=== PATIENT | female | born 1945 | race African-American/Black ===

== ENCOUNTER 2017-01-29 21:42 | Emergency (ER) | payer OTHER ==
[~2017-01-29 21:42] MED LIST: DUONEB3 ML NEB; LAC PO; LEV500 PO; LEVAQUIN750 MG PO; LOSARTAN POTASS1 TA6 PO; LOW DOSE ASPIRI81 M1 PO; LOW DOSE ASPIRI81 MG; MAGNESIUM OXID400 MG PO; MEDDP PO; NOR10T PO; NPHOS PO; PLA75 PO; PREVACID PO; PREVACID SOLUTA15 MG; SEREVENT D0.046 MG/1 IH; SEREVENT D0.046 MG/A IH; TOPROL; TOPROL-XL200 MG PO; [UNRECOGNIZED DRUG - CODE]
[2017-01-29 22:36] LABS: CALCIUM 9.7 mg/dL (8.5-10.1); CARBON DIOXIDE 28.5 mmol/L (21-32); CHLORIDE SERUM 101 mmol/L (98-107); CREATININE SERUM 1.3 mg/dL (0.6-1.0); GLUCOSE SERUM 105 mg/dL (74-106); POTASSIUM SERUM 3.3 mmol/L (3.5-5.1); SODIUM SERUM 140 mmol/L (136-145)
[2017-01-29 22:41] LABS: ALBUMIN 4.2 g/dL (3.4-5.0); ALKALINE PHOSPHATASE 58 U/L (46-116); ALT/SGPT 13 U/L (14-59); AMYLASE 63 U/L (25-115); AST/SGOT 16 U/L (15-37); BILIRUBIN TOTAL 1.4 mg/dL (0.20-1.00); LIPASE 146 IU/L (73-393)
[2017-01-29 22:45] LABS: BASOPHIL % 0.4 % (0-2); PLATELET COUNT 313 x10^3mcL (130-400)
[2017-01-29 22:49] LABS: RED CELL DISTRIBUTION WIDTH 16.5 % (11.5-14.5)
[2017-01-30 00:51] VITALS: BP 123/61
== END 2017-01-30 00:51 | disposition home or self-care (01) ==
LOC: ED 21:42
PROVIDERS: Emergency Medicine
DX: R11.10 Vomiting, unspecified (principal); R19.7 Diarrhea, unspecified; R10.13 Epigastric pain; J44.9 Chronic obstructive pulmonary disease, unspecified; I10 Essential (primary) hypertension; M19.90 Unspecified osteoarthritis, unspecified site; Z88.0 Allergy status to penicillin; Z95.5 Presence of coronary angioplasty implant and graft
CPT/HCPCS: J2405; J7030; J7040; Q0092